=== PATIENT | male | born 1985 ===

== ENCOUNTER 2021-05-28 09:21 | Emergency (ER) | payer SELFPAY ==
[~2021-05-28] VITALS: Ht 172.7 cm; Wt 68.0 kg
[2021-05-28 09:42] VITALS: BP 130/73
== END 2021-05-28 10:23 | disposition home or self-care (01) ==
LOC: EMS 09:21
DX: F15.10 Other stimulant abuse, uncomplicated (principal)
CPT/HCPCS: 99283